=== PATIENT | female | born 1965 | race Caucasian/White ===

== ENCOUNTER 2018-05-04 08:55 | Day surgery (SDC) | payer OTHER ==
[2018-05-03 14:58] LABS: BASOPHILS % (AUTO) 0.3 % (0.0-5.0); EOSINOPHILS % (AUTO) 0.2 % (0.0-8.0); LYMPHOCYTES % (AUTO) 24.2 % (21.0-51.0); MEAN CORPUSCULAR HEMOGLOBIN 27.9 pg (27.0-33.0); MEAN CORPUSCULAR HGB CONC 33.3 g/dL (32.0-36.0); MEAN CORPUSCULAR VOLUME 83.9 fL (79-99); MONOCYTES % (AUTO) 6.3 % (3.0-13.0); NUCLEATED RED BLOOD CELLS 0.1 % (0.0-0.19); PLATELET COUNT (AUTO) 199 K/uL (130-400); RED BLOOD CELL COUNT(AUTO) 4.76 MIL/uL (4.00-5.50); RED CELL DISTRIBUTION WIDTH 13.1 % (11.0-15.5); WHITE BLOOD COUNT (AUTO) 6.6 K/uL (4.8-10.8)
[2018-05-03 14:59] VITALS: BP 115/69
[2018-05-03 15:12] LABS: CREATININE 0.8 mg/dL (0.5-1.5); POTASSIUM 3.5 mmol/L (3.5-5.1)
[~2018-05-04] VITALS: Ht 167.6 cm; Wt 98.7 kg
[2018-05-04] VITALS (14 sets, daily range): BP systolic 118–150; BP diastolic 58–80
[~2018-05-04 08:55] MED LIST: ACET-66 PO; CALC-810 PO; HYDR25TA PO; IBUP-2077 PO; LEVO100T12 PO; LISI1TAB11 PO; MULT-1203 PO
[2018-05-04] MEDS ORDERED: LACTATED RINGERS 1000ML 1,000 ML IV ONE (09:47)
[2018-05-04] MEDS ORDERED: CEFAZOLIN SODIUM 1 GM VIAL ONE (09:47)
[2018-05-04] MEDS: CEFAZOLIN SODIUM 1 GM VIAL IVP ONE ×2 (09:58→13:04)
--- NOTE | 2018-05-04 10:10 | NUR ---
PREOP RIGHT SHOULDER WIPED WITH ANUJA BY DAYRON. , NO CLIPPING NEEDED. SCD PLACE TO BLE.
[2018-05-04] MEDS ORDERED: SCOPOLAMINE HYDROBROMIDE 1 EACH ADH..PATCH TD ONE (11:10)
[2018-05-04] MEDS ORDERED: EPINEPHRINE 1 MG/ML 30ML VIAL IJ ONE (11:14)
[2018-05-04] MEDS ORDERED: LIDOCAINE PF 2% 5ML ABBOJECT ONE (11:15)
[2018-05-04] MEDS ORDERED: PROPOFOL 10 MG/ML 20ML VIAL IV ONE (11:16)
[2018-05-04] MEDS ORDERED: FENTANYL CITRATE PF 50 MCG/1 ML 2ML VIAL ONE (11:17)
[2018-05-04] MEDS ORDERED: ROPIVACAINE 0.5% 5MG/ML 30ML IJ ONE (11:22)
[2018-05-04] MEDS ORDERED: SUCCINYLCHOLINE 200MG/10ML SYR ONE (11:23)
[2018-05-04] MEDS ORDERED: ROCURONIUM 10MG/1ML SYR 10 MG/ML ML ONE (11:23)
[2018-05-04] MEDS ORDERED: DEXAMETHASONE SOD PHOSPHATE 10MG/ML 1ML VIAL ONE (11:29)
[2018-05-04] MEDS ORDERED: PHENYLEPHRINE HCL 10 MG/ML 1ML VIAL IV ONE (12:59)
[2018-05-04] MEDS ORDERED: SODIUM CHLORIDE 0.9% 10 ML VIAL ONE (12:59)
[2018-05-04] MEDS ORDERED: EPHEDRINE SULFATE 50 MG/ML AMPULE ONE (13:17)
[2018-05-04] MEDS ORDERED: NEOSTIGMINE 5MG/5ML SYR IV ONE (14:39)
[2018-05-04] MEDS ORDERED: GLYCOPYRROLATE 1 MG/5 ML SYRINGE ONE (14:39)
[2018-05-04] MEDS ORDERED: ONDANSETRON HCL 4 MG/2 ML VIAL ONE (14:44)
[2018-05-04] MEDS ORDERED: KETOROLAC TROMETHAMINE 30MG/ML ONE (14:53)
[2018-05-04] MEDS ORDERED: TRAM50TA4 PO (14:54)
[2018-05-04] MEDS ORDERED: IBUP-2077 PO (14:54)
[2018-05-04] MEDS ORDERED: DiphenhydrAMINE HCL 50 MG/ML VIAL ONE (14:59)
[2018-05-04] MEDS ORDERED: PROMETHAZINE HCL 25 MG/ML 1ML AMPULE IM ONE ×2 (15:02→15:32)
--- NOTE | 2018-05-04 16:09 | NUR ---
PATIENT RETURNED FROM PACU WITH NAUSEA, NO VOMIT. RIGHT SHOULDER IS SWOLLEN, ICE PACK TO RIGHT SHOULDER. SLING ON TO RIGHT ARM.
--- NOTE | 2018-05-04 17:00 | NUR ---
PATIENT LEFT IN NO DISTRESS, DRESSING TO RIGHT SHOULDER IS CLEAN AND DRY. NO NAUSEA, NO VOMITING UPON DISCHARGE PATIENT STATES FEELING WELL.
== END 2018-05-04 17:08 | disposition home or self-care (01) ==
LOC: DAH 08:55
PROVIDERS: ATTEND Orthopaedic Surgery
DX: M75.101 Unspecified rotator cuff tear or rupture of right shoulder, not specified as traumatic (principal); M75.41 Impingement syndrome of right shoulder; Z68.35 Body mass index [BMI] 35.0-35.9, adult; Z79.899 Other long term (current) drug therapy; Z98.890 Other specified postprocedural states; E03.9 Hypothyroidism, unspecified; E78.5 Hyperlipidemia, unspecified; K21.9 Gastro-esophageal reflux disease without esophagitis; I10 Essential (primary) hypertension; M54.5 Low back pain; G43.109 Migraine with aura, not intractable, without status migrainosus; E55.9 Vitamin D deficiency, unspecified; Z90.710 Acquired absence of both cervix and uterus; Z83.3 Family history of diabetes mellitus; Z82.49 Family history of ischemic heart disease and other diseases of the circulatory system; Z88.8 Allergy status to other drugs, medicaments and biological substances; M19.90 Unspecified osteoarthritis, unspecified site
CPT/HCPCS: 29824; 29826; 29827; 36415; 80048; 85025; A4218; A4450; A4565; A4600; A4649 ×4; A4930 ×2; A6204; C1763; J0171; J0330; J0690; J1100; J1200; J2001; J2370; J2405; J2550 ×2; J2704; J2710; J2795; J3010; J3490 ×2; J7120 ×2; J1885

== ENCOUNTER 2019-12-15 11:04 | Emergency (ER) | payer OTHER ==
[~2019-12-15 11:04] MED LIST changes: -CALC-810 PO; -LISI1TAB11 PO; +LISI1TAB51 PO; +TRAM50TA4 PO; +[UNRECOGNIZED DRUG - CODE] PO
[2019-12-15] MEDS ORDERED: ONDANSETRON HCL 4 MG/2 ML VIAL ONE (11:46)
[2019-12-15 11:47] LABS: BASOPHILS % (AUTO) 0.2 % (0.0-5.0); EOSINOPHILS % (AUTO) 2.9 % (0.0-8.0); HEMATOCRIT 43.7 % (36-48); LYMPHOCYTES % (AUTO) 9.3 % (21.0-51.0); MEAN CORPUSCULAR HEMOGLOBIN 28.8 pg (27.0-33.0); MEAN CORPUSCULAR HGB CONC 33.9 g/dL (32.0-36.0); MEAN CORPUSCULAR VOLUME 85.2 fL (79-99); MONOCYTES % (AUTO) 7.3 % (3.0-13.0); NEUTROPHILS % (AUTO) 80.1 % (40.0-77.0); PLATELET COUNT (AUTO) 157 K/uL (130-400); RED BLOOD CELL COUNT(AUTO) 5.13 MIL/uL (4.00-5.50); RED CELL DISTRIBUTION WIDTH 12.9 % (11.0-15.5); WHITE BLOOD COUNT (AUTO) 5.8 K/uL (4.8-10.8)
[2019-12-15] MEDS ORDERED: SODIUM CHLORIDE 0.9% 1000ML 1,000 ML IV ONE ×2 (11:47→14:15)
[2019-12-15 12:05] LABS: ALBUMIN 3.7 g/dL (3.5-5.0); BILIRUBIN,TOTAL 0.6 mg/dL (0.2-1.0); TOTAL PROTEIN, SERUM 8.5 g/dL (6.0-8.3)
[2019-12-15 12:29] LABS: POTASSIUM 2.9 mmol/L (3.5-5.1)
[2019-12-15] MEDS ORDERED: POTASSIUM BICARB/CIT AC 25 MEQ TABLET.EFF ONE (12:54)
[2019-12-15 13:26] LABS: APPEARANCE,URINE Clear (CLEAR); BILIRUBIN,URINE Negative (NEGATIVE); COLOR,URINE Dark Yellow (YELLOW); GLUCOSE, URINE (UA) Negative (NEGATIVE); KETONES,URINE 40 mg/dL (NEGATIVE); LEUKOCYTE ESTERASE ,URINE Negative (NEGATIVE); NITRATE,URINE Negative (NEGATIVE); OCCULT BLOOD,URINE Trace (NEGATIVE); PROTEIN,URINE POS 2+ mg/dL (NEGATIVE)
[2019-12-15 13:33] LABS: BACTERIA,URINE Rare /HPF (None Seen); MUCUS,URINE Many LPF (None Seen); RBC,URINE 0-1 /HPF (0-1); SQUAMOUS EPITHELIAL CELL,UR Rare /HPF (0-2); WBC,URINE 0-1 /HPF (0-1)
== END 2019-12-15 15:44 | disposition home or self-care (01) ==
LOC: EDH 11:04
DX: A08.39 Other viral enteritis (principal); E86.0 Dehydration; E87.6 Hypokalemia; I10 Essential (primary) hypertension; E03.9 Hypothyroidism, unspecified; Z90.49 Acquired absence of other specified parts of digestive tract; Z90.710 Acquired absence of both cervix and uterus; Z91.048 Other nonmedicinal substance allergy status; Z88.6 Allergy status to analgesic agent; Z88.7 Allergy status to serum and vaccine
CPT/HCPCS: 36415; 80053; 81001; 82550; 83690; 83735; 84484; 85025; 93005; 96361; 96374; 99284; J2405; J7030 ×2

== ENCOUNTER 2020-02-12 09:07 | Day surgery (SDC) | payer OTHER ==
[2020-02-05 11:25] LABS: BASOPHILS % (AUTO) 0.5 % (0.0-5.0); HEMATOCRIT 41.1 % (36-48); LYMPHOCYTES % (AUTO) 29.3 % (21.0-51.0); MEAN CORPUSCULAR HEMOGLOBIN 28.2 pg (27.0-33.0); MEAN CORPUSCULAR HGB CONC 32.4 g/dL (32.0-36.0); MEAN CORPUSCULAR VOLUME 87.3 fL (79-99); MONOCYTES % (AUTO) 5.8 % (3.0-13.0); NEUTROPHILS % (AUTO) 63.1 % (40.0-77.0); PLATELET COUNT (AUTO) 177 K/uL (130-400); RED BLOOD CELL COUNT(AUTO) 4.71 MIL/uL (4.00-5.50); RED CELL DISTRIBUTION WIDTH 12.8 % (11.0-15.5)
[2020-02-05 11:32] LABS: CREATININE 0.7 mg/dL (0.5-1.5); POTASSIUM 3.9 mmol/L (3.5-5.1)
[2020-02-11 13:01] VITALS: BP 121/81
[~2020-02-12] VITALS: Ht 175.3 cm; Wt 84.4 kg
[2020-02-12] VITALS (16 sets, daily range): BP systolic 116–153; BP diastolic 68–103
[~2020-02-12 09:07] MED LIST changes: +ACET-3194 PO; -ACET-66 PO; +CYAN-52 PO; +HYDR12.54 PO; -HYDR25TA PO; +LIDOP TP; -MULT-1203 PO; +POTA20TA82 PO; -TRAM50TA4 PO; +VITAMIN D PO; -[UNRECOGNIZED DRUG - CODE] PO
[2020-02-12] MEDS ORDERED: LACTATED RINGERS 1000ML 1,000 ML IV ONE (11:23)
[2020-02-12] MEDS: CEFAZOLIN SODIUM 1 GM VIAL IVP SCH ×2 (11:30→16:30)
[2020-02-12] MEDS ORDERED: ONDANSETRON HCL 4 MG/2 ML VIAL ONE (14:58)
[2020-02-12] MEDS ORDERED: SUCCINYLCHOLINE CHLORIDE 20 MG/ML 10 ML VIAL ONE (14:58)
[2020-02-12] MEDS ORDERED: DEXAMETHASONE SOD PHOSPHATE 10MG/ML 1ML VIAL ONE (14:58)
[2020-02-12] MEDS ORDERED: LIDOCAINE PF 2% 5ML ABBOJECT ONE (14:58)
[2020-02-12] MEDS ORDERED: ROCURONIUM 10MG/1ML SYR 10 MG/ML ML ONE (14:59)
[2020-02-12] MEDS ORDERED: GLYCOPYRROLATE 1 MG/5 ML SYRINGE ONE (14:59)
[2020-02-12] MEDS ORDERED: PROPOFOL 10 MG/ML 20ML VIAL IV ONE (14:59)
[2020-02-12] MEDS ORDERED: NEOSTIGMINE 5MG/5ML SYR IV ONE (14:59)
[2020-02-12] MEDS ORDERED: MIDAZOLAM HCL 1 MG/ML 2ML VIAL ONE (14:59)
[2020-02-12] MEDS ORDERED: FENTANYL CITRATE PF 50 MCG/1 ML 2ML VIAL ONE ×2 (15:00→17:47)
[2020-02-12] MEDS ORDERED: ROPIVACAINE 0.5% 5MG/ML 30ML IJ ONE ×2 (15:01→16:24)
[2020-02-12] MEDS ORDERED: SCOPOLAMINE HYDROBROMIDE 1 EACH ADH..PATCH TD ONE (16:00)
[2020-02-12] MEDS ORDERED: EPINEPHRINE 1 MG/ML 30ML VIAL IJ ONE (16:10)
[2020-02-12] MEDS ORDERED: CEPH500B PO (18:35)
--- NOTE | 2020-02-12 19:45 | NUR ---
DRESSING TO LEFT UPPER SHOULDER DRY/INTACT. SLING IN PLACE, DENIES ANY PAIN AT THIS TIME.
--- NOTE | 2020-02-12 20:30 | NUR ---
PATIENT DISCHARGED FROM FACILITY VIA WHEELCHAIR BY NURSE AND ASSISTED INTO PRIVATE VEHICLE DRIVEN BY FAMILY
== END 2020-02-12 20:30 | disposition home or self-care (01) ==
LOC: DAH 09:07
PROVIDERS: ATTEND Orthopaedic Surgery
DX: M75.112 Incomplete rotator cuff tear or rupture of left shoulder, not specified as traumatic (principal); Z20.828 Contact with and (suspected) exposure to other viral communicable diseases; M19.012 Primary osteoarthritis, left shoulder; I10 Essential (primary) hypertension; K21.9 Gastro-esophageal reflux disease without esophagitis; E66.9 Obesity, unspecified; Z88.8 Allergy status to other drugs, medicaments and biological substances; Z98.890 Other specified postprocedural states; Z79.899 Other long term (current) drug therapy
CPT/HCPCS: 29824; 29827; 29826; 36415; 64415; 76942; 80048; 85025; A4215; A4221; A4222; A4223; A4600; A4649 ×6; A4657; A4663; A4930; A6204; A6223; C1713 ×2; C9803; G0168; J0171; J0330; J0690; J1100; J2001; J2250; J2405; J2704; J2710; J2795 ×2; J3010 ×2; J3490; J7120 ×2; U0003

== ENCOUNTER 2022-11-28 06:25 | Day surgery (SDC) | payer OTHER ==
[2022-11-25 09:18] VITALS: BP 124/77; PULSE 66; RESP 16
[2022-11-25 09:35] LABS: BASOPHILS # (AUTO) 0.02 K/uL (0.00-0.20); BASOPHILS % (AUTO) 0.4 % (0.0-5.0); EOSINOPHILS # (AUTO) 0.02 K/uL (0.00-0.70); EOSINOPHILS % (AUTO) 0.4 % (0.0-8.0); HEMATOCRIT 41.6 % (36-48); IMMATURE GRANULOCYTE ABSOLUTE 0.01 K/uL (0-1); LYMPHOCYTES # (AUTO) 1.3 K/uL (1.0-4.8); LYMPHOCYTES % (AUTO) 25.3 % (21.0-51.0); MEAN CORPUSCULAR HEMOGLOBIN 27.5 pg (27.0-33.0); MEAN CORPUSCULAR HGB CONC 31.7 g/dL (32.0-36.0); MEAN CORPUSCULAR VOLUME 86.7 fL (79-99); MONOCYTES # (AUTO) 0.4 K/uL (0.1-1.0); NEUTROPHILS # (AUTO) 3.4 K/uL (1.8-7.7); NEUTROPHILS % (AUTO) 66.7 % (40.0-77.0); PLATELET COUNT (AUTO) 197 K/uL (130-400); RED CELL DISTRIBUTION WIDTH 13.2 % (11.0-15.5); WHITE BLOOD COUNT (AUTO) 5.1 K/uL (4.8-10.8)
[2022-11-25 09:58] LABS: CREATININE 0.7 mg/dL (0.5-1.5); POTASSIUM 3.9 mmol/L (3.5-5.1)
[~2022-11-28] VITALS: Ht 167.6 cm; Wt 97.0 kg
[2022-11-28] VITALS (19 sets, daily range): BP systolic 13–137; BP diastolic 50–80; PULSE 58–75; RESP 14–18
[~2022-11-28 06:25] MED LIST changes: -ACET-3194 PO; +AMLO2.5T4 PO; +CARB15DR OP; +CHOL2000 PO; -CYAN-52 PO; +EZET10TA13 PO; -HYDR12.54 PO; -IBUP-2077 PO; -LIDOP TP; -LISI1TAB51 PO; +LISI1TAB53 PO; +POTA-202 PO; -POTA20TA82 PO; -VITAMIN D PO; +Vitamin B12 PO
[2022-11-28] MEDS ORDERED: LACTATED RINGERS 1000ML 1,000 ML IV ONE (06:40)
[2022-11-28] MEDS ORDERED: CEFAZOLIN SODIUM 2 GM VIAL ONE (06:40)
[2022-11-28] MEDS ORDERED: INDOCYANINE GREEN 25 MG VIAL IJ ONE (07:25)
[2022-11-28] MEDS ORDERED: LIDOCAINE 2%-EPI 1:200,000 20 ML VIAL IJ ONE (07:34)
[2022-11-28] MEDS ORDERED: BUPIVACAINE/PF 0.5% 30ML VIAL ONE (07:34)
[2022-11-28] MEDS ORDERED: BUPIVACAINE/PF 0.5% 30ML VIAL INJ ONE (07:44)
[2022-11-28] MEDS ORDERED: SUCCINYLCHOLINE 200MG/10ML SYR ONE (08:15)
[2022-11-28] MEDS ORDERED: METOCLOPRAMIDE 10 MG/2 ML VIAL ONE (08:15)
[2022-11-28] MEDS ORDERED: PROPOFOL 10 MG/ML 20ML VIAL IV ONE (08:16)
[2022-11-28] MEDS ORDERED: FENTANYL CITRATE PF 50 MCG/1 ML 2ML VIAL ONE (08:16)
[2022-11-28] MEDS ORDERED: MIDAZOLAM HCL 1 MG/ML 2ML VIAL ONE (08:16)
[2022-11-28] MEDS ORDERED: ROCURONIUM 10MG/1ML SYR 10 MG/ML ML ONE (08:16)
[2022-11-28] MEDS ORDERED: ONDANSETRON 4MG INJ ONE (08:16)
[2022-11-28] MEDS ORDERED: SCOPOLAMINE HYDROBROMIDE 1 EACH ADH..PATCH TD ONE (08:17)
[2022-11-28] MEDS ORDERED: BUPIVACAINE/PF 0.25% 30ML VIAL IJ ONE ×2 (08:33→08:37)
[2022-11-28] MEDS ORDERED: EPHEDRINE SULFATE 50 MG/ML AMPULE ONE (08:42)
[2022-11-28] MEDS ORDERED: GLYCOPYRROLATE 1 MG/5 ML SYRINGE ONE (09:31)
[2022-11-28] MEDS ORDERED: NEOSTIGMINE 5MG/5ML SYR IV ONE (09:31)
[2022-11-28] MEDS ORDERED: MEPERIDINE-PF 25 MG/ML SYG ONE ×2 (09:36→10:22)
== END 2022-11-28 11:40 | disposition home or self-care (01) ==
LOC: DAH 06:25
PROVIDERS: ATTEND Surgery
DX: K80.10 Calculus of gallbladder with chronic cholecystitis without obstruction (principal); Z20.822 Contact with and (suspected) exposure to COVID-19; K82.8 Other specified diseases of gallbladder; I10 Essential (primary) hypertension; E03.9 Hypothyroidism, unspecified; Z88.8 Allergy status to other drugs, medicaments and biological substances; Z88.6 Allergy status to analgesic agent; Z91.040 Latex allergy status; Z90.49 Acquired absence of other specified parts of digestive tract; Z98.890 Other specified postprocedural states; Z90.710 Acquired absence of both cervix and uterus; Z82.49 Family history of ischemic heart disease and other diseases of the circulatory system; Z83.3 Family history of diabetes mellitus; Z79.899 Other long term (current) drug therapy
CPT/HCPCS: 47562; S2900; 36415; 80048; 85025; 88304; J0330; J2175; J2250; J2405; J2704; J2710; J2765; J3010; J3490; J7030; J7120; A4215; A4221; A4222; A4223; A4600; A4649; A4663; A6260; C1769; G0168; J0690

== ENCOUNTER 2024-01-16 05:36 | Observation (INO) | payer OTHER ==
[2024-01-10 09:35] VITALS: BP 134/74; PULSE 77; RESP 18; TEMP 98
[2024-01-10 09:45] LABS: BASOPHILS # (AUTO) 0.01 K/uL (0.00-0.20); BASOPHILS % (AUTO) 0.2 % (0.0-5.0); EOSINOPHILS # (AUTO) 0.01 K/uL (0.00-0.70); EOSINOPHILS % (AUTO) 0.2 % (0.0-8.0); HEMATOCRIT 42.5 % (36-48); IMMATURE GRANULOCYTE ABSOLUTE 0.01 K/uL (0-1); LYMPHOCYTES # (AUTO) 1.2 K/uL (1.0-4.8); LYMPHOCYTES % (AUTO) 27.7 % (21.0-51.0); MEAN CORPUSCULAR HEMOGLOBIN 27.4 pg (27.0-33.0); MEAN CORPUSCULAR HGB CONC 32.2 g/dL (32.0-36.0); MONOCYTES # (AUTO) 0.3 K/uL (0.1-1.0); MONOCYTES % (AUTO) 6.8 % (3.0-13.0); NEUTROPHILS # (AUTO) 2.9 K/uL (1.8-7.7); NEUTROPHILS % (AUTO) 64.9 % (40.0-77.0); PLATELET COUNT (AUTO) 214 K/uL (130-400); RED CELL DISTRIBUTION WIDTH 13.5 % (11.0-15.5); WHITE BLOOD COUNT (AUTO) 4.4 K/uL (4.8-10.8)
[2024-01-10 09:48] LABS: CREATININE 0.8 mg/dL (0.5-1.0); POTASSIUM 3.6 mmol/L (3.5-5.1)
[2024-01-10 09:54] LABS: INR 0.98 (0.85-1.15); PROTHROMBIN TIME 10.6 SEC (9.6-11.6)
[2024-01-10 09:55] LABS: PARTIAL THROMBOPLASTIN TIME 24.2 SEC (26.3-35.5)
[2024-01-10 10:04] LABS: APPEARANCE,URINE CLEAR (CLEAR); BILIRUBIN,URINE NEGATIVE (NEGATIVE); COLOR,URINE YELLOW (YELLOW); GLUCOSE, URINE (UA) NEGATIVE (NEGATIVE); KETONES,URINE NEGATIVE (NEGATIVE); LEUKOCYTE ESTERASE ,URINE NEGATIVE Leu/uL (NEGATIVE); NITRATE,URINE NEGATIVE (NEGATIVE); OCCULT BLOOD,URINE NEGATIVE (NEGATIVE); PH,URINE 6.5 (5.0-8.0); PROTEIN,URINE NEGATIVE (NEGATIVE); UROBILINOGEN,URINE 0.2 mg/dL (0.2-1.0)
[2024-01-10 10:07] LABS: ADD UA MICROSCOPIC NO
[2024-01-11] MEDS: 0.9%NACL 1000ML 1,000 ML IV ONE (10:33)
[~2024-01-16] VITALS: Ht 168.9 cm; Wt 103.4 kg
[2024-01-16] VITALS (26 sets, daily range): BP systolic 111–155; BP diastolic 6–102; PULSE 71–91; RESP 12–21; TEMP 98–98.6; O2SAT 96–97
[~2024-01-16 05:36] MED LIST changes: -CARB15DR OP; -EZET10TA13 PO; +EZET10TA48 PO; +NAPR-1023 PO; +VITA-427 PO; -Vitamin B12 PO
[2024-01-16] MEDS: ceFAZolin SODIUM 2 GM VIAL ONE (06:22)
[2024-01-16] MEDS: LACTATED RINGERS 1000ML 1,000 ML IV ONE (06:22)
[2024-01-16] MEDS: SCOPOLAMINE HYDROBROMIDE 1 EACH ADH..PATCH TD ONE ×2 (07:09→07:30)
[2024-01-16] MEDS ORDERED: morPHINE PF 100MG/10ML AMP IV ONE (07:11)
[2024-01-16] MEDS ORDERED: MIDAZOLAM HCL 1 MG/ML 2ML VIAL ONE (07:23)
[2024-01-16] MEDS ORDERED: dexaMETHasone SOD PHOSPHATE 4 MG/ML 1ML VIAL ONE ×2 (07:23→07:28)
[2024-01-16] MEDS ORDERED: FENTanyl CITRate PF 50 MCG/1 ML 2ML VIAL ONE (07:24)
[2024-01-16] MEDS ORDERED: rocuRONium bROMide 10MG/1ML 5ML VL ONE (07:24)
[2024-01-16] MEDS ORDERED: proPOFol 10 MG/ML 20ML VIAL IV ONE (07:24)
[2024-01-16] MEDS ORDERED: ondanSETRON 4MG INJ ONE (07:24)
[2024-01-16] MEDS ORDERED: NEOSTIGMINE METHYLSULFATE 1MG/ML IV ONE (07:25)
[2024-01-16] MEDS ORDERED: LIDOCAINE PF 100MG/5ML (2%) SYRINGE 5ML ONE (07:25)
[2024-01-16] MEDS ORDERED: ROPivacaine 0.5% 5MG/ML 30ML ONE (07:33)
[2024-01-16] MEDS: VANCOMYCIN 500MG+NS 100ML 100 ML IV ONE (08:00)
[2024-01-16] MEDS: ceFAZolin SODIUM 2 GM VIAL IVPB SCH (08:00)
[2024-01-16] MEDS: TRANEXAMIC ACID 1000MG/10ML ONE (08:30)
[2024-01-16] MEDS: ceFAZolin SODIUM 1 GM VIAL ONE (08:40)
[2024-01-16] MEDS: VANCOMYCIN 500MG+NS 100ML IVPB IV ONE (09:00)
[2024-01-16] MEDS: TRANEXAMIC ACID 1000MG/10ML IV ONE ×2 (10:16)
[2024-01-16] MEDS ORDERED: CALCIUM CARB 500MG PO PRN (11:00)
[2024-01-16] MEDS: 0.9%NACL 1000ML 1,000 ML IV SCH (11:00)
[2024-01-16] MEDS ORDERED: FERROUS FUMARATE 324 MG TABLET PO PRN (11:00)
[2024-01-16] MEDS ORDERED: DiphenhydrAMINE HCL 50 MG/ML VIAL IVP PRN (11:00)
[2024-01-16] MEDS ORDERED: TEMAZepam 15 MG CAPSULE PO PRN (11:00)
[2024-01-16] MEDS ORDERED: PoTASSium chl 10% ELIXIR 20MEQ 20 MEQ/15 ML UDCUP PO PRN (11:00)
[2024-01-16] MEDS ORDERED: ondanSETRON 4MG INJ IVP PRN (11:00)
[2024-01-16] MEDS: acetaMINOPHEN 1,000 MG/100 ML VIAL IV ONE (11:59)
[2024-01-16] MEDS: ceFAZolin SODIUM 1 GM VIAL IVP SCH (18:23)
[2024-01-16] MEDS: FAMOTIDINE 20MG TAB PO SCH (19:56)
[2024-01-16] MEDS: ketOROlac 15MG/ML VIAL (15MG/ML) IV SCH (19:56)
[2024-01-16] MEDS: ASPIRIN 81 MG EC TAB PO SCH (19:56)
[2024-01-16] MEDS: acetaMINOPHEN 500 MG TABLET PO SCH (19:56)
[2024-01-16] MEDS: CeleCOXib 200 MG CAP PO SCH (19:57)
[2024-01-17] VITALS: BP 99/47; PULSE 72; RESP 20; TEMP 98.3
[2024-01-17 04:00] VITALS: BP 105/55; PULSE 72; RESP 18; TEMP 98.2
[2024-01-17 05:13] LABS: HEMATOCRIT 33.7 % (36-48); MEAN CORPUSCULAR HEMOGLOBIN 27.7 pg (27.0-33.0); MEAN CORPUSCULAR HGB CONC 32.3 g/dL (32.0-36.0); MEAN CORPUSCULAR VOLUME 85.5 fL (79-99); RED BLOOD CELL COUNT(AUTO) 3.94 MIL/uL (4.00-5.50); RED CELL DISTRIBUTION WIDTH 13.3 % (11.0-15.5); WHITE BLOOD COUNT (AUTO) 4.8 K/uL (4.8-10.8)
[2024-01-17 05:22] LABS: CREATININE 0.7 mg/dL (0.5-1.0)
[2024-01-17] MEDS: levoTHYROxine 100 MCG TABLET PO SCH (05:35)
[2024-01-17] MEDS: PoTASSium chloRIDE 20MEQ ER 20 MEQ ERTAB PO PRN (05:35)
[2024-01-17] MEDS: PoTASSium chloRIDE 20MEQ/100ML 100 ML IV PRN (05:36)
[2024-01-17 07:30] VITALS: BP 113/65; PULSE 62; RESP 20; TEMP 98.6
[2024-01-17] MEDS: polyETHYLene GLYCol 3350 17 GM POWD.PACK PO SCH (08:46)
[2024-01-17] MEDS: PoTASSium chloRIDE 20MEQ ER 20 MEQ ERTAB PO SCH (08:47)
[2024-01-17] MEDS: LISINOPRIL 20 MG TABLET PO SCH (08:47)
[2024-01-17] MEDS: hydroCHLOROthiazide 25 MG TABLET PO SCH (08:48)
[2024-01-17] MEDS: EZETIMIBE 10 MG TAB PO SCH (08:48)
[2024-01-17] MEDS: amLODIPine 2.5 MG TAB PO SCH (08:48)
[2024-01-17] MEDS: **HM**(Cholecalciferol (Vitamin D3) (Vitamin D3) 50 MCG) PO SCH (08:49)
[2024-01-17 09:00] VITALS: O2SAT 99
[2024-01-17 11:30] VITALS: BP 129/74; PULSE 84; RESP 20; TEMP 98.7
[2024-01-17 15:30] VITALS: BP 115/58; PULSE 84; RESP 20; TEMP 98.6
[2024-01-17] MEDS ORDERED: AEC81 PO (17:51)
[2024-01-18] MEDS ORDERED: VITAMIN B COMPLEX 1 CAPSULE PO SCH (09:00)
[2024-01-19] MEDS ORDERED: BisaCODYL 10 MG SUPP.RECT RC PRN (11:00)
== END 2024-01-17 18:40 | disposition home or self-care (01) ==
LOC: DAH 05:36 → DAHIP 05:37 → 4DH 12:25
PROVIDERS: ADMIT Orthopaedic Surgery; ATTEND Orthopaedic Surgery
DX: M17.12 Unilateral primary osteoarthritis, left knee (principal); G89.18 Other acute postprocedural pain; E03.9 Hypothyroidism, unspecified; E78.5 Hyperlipidemia, unspecified; K21.9 Gastro-esophageal reflux disease without esophagitis; I10 Essential (primary) hypertension; Z79.899 Other long term (current) drug therapy
CPT/HCPCS: 80048 ×2; 85025; 85610; 85730; 87086; 81003; 36415 ×2; 87641; 64447; 27447; 96374; 96375; 88311; 88305; 97161; 97116 ×3; 96376 ×2; 85027; 97530 ×2; J7030; G0378 ×28; A4663; J7120 ×2; J3010; J0690 ×4; J3490 ×3; J2003; J2250; J2704; J2405; J2710; J1100 ×2; J2795; J1885 ×2; J3370; A9272; A4649 ×3; A4930 ×3; C1713; C1776; A5120; A4215; A4223; A4222; A4221; J3480; 96365; 96366; J2274

== ENCOUNTER 2024-07-21 19:37 | Emergency (ER) | payer OTHER ==
[~2024-07-21] VITALS: Ht 167.6 cm; Wt 99.3 kg
[~2024-07-21 19:37] MED LIST changes: +AEC81 PO; -NAPR-1023 PO; +NAPR-1194 PO
--- NOTE | 2024-07-21 19:43 | NUR ---
UA CUP PROVIDED
[2024-07-21 20:28] LABS: BASOPHILS # (AUTO) 0.02 K/uL (0.00-0.20); BASOPHILS % (AUTO) 0.3 % (0.0-5.0); EOSINOPHILS # (AUTO) 0.11 K/uL (0.00-0.70); EOSINOPHILS % (AUTO) 1.9 % (0.0-8.0); HEMATOCRIT 40.7 % (36-48); IMMATURE GRANULOCYTE ABSOLUTE 0.01 K/uL (0-1); LYMPHOCYTES # (AUTO) 1.3 K/uL (1.0-4.8); LYMPHOCYTES % (AUTO) 22.1 % (21.0-51.0); MEAN CORPUSCULAR HEMOGLOBIN 27.5 pg (27.0-33.0); MEAN CORPUSCULAR HGB CONC 32.7 g/dL (32.0-36.0); MEAN CORPUSCULAR VOLUME 84.3 fL (79-99); MONOCYTES # (AUTO) 0.4 K/uL (0.1-1.0); MONOCYTES % (AUTO) 6.3 % (3.0-13.0); NEUTROPHILS # (AUTO) 4.1 K/uL (1.8-7.7); NEUTROPHILS % (AUTO) 69.2 % (40.0-77.0); PLATELET COUNT (AUTO) 207 K/uL (130-400); RED BLOOD CELL COUNT(AUTO) 4.83 MIL/uL (4.00-5.50); RED CELL DISTRIBUTION WIDTH 13.2 % (11.0-15.5); WHITE BLOOD COUNT (AUTO) 5.9 K/uL (4.8-10.8)
--- NOTE | 2024-07-21 20:38 | HMCIMG ---
CT ABDOMEN/PELVIS W/O CONTRAST HISTORY: Left lower abdominal pain COMPARISON: None TECHNIQUE: Multiple sequential axial images of the abdomen and pelvis were obtained from the dome of the diaphragm through symphysis pubis. Patient was not given contrast through intravenous route. Oral contrast was not given. FINDINGS: No pleural effusion is seen bilaterally. Minimal right lower lung pulmonary infiltrates are seen. Degenerative changes of the thoracolumbar spine are present. The heart is not enlarged. Coronary arterial calcifications are seen. Liver measured 20 cm. A small hiatal hernia is seen. There is small periumbilical hernia with fat content. There is left adrenal nodule measuring 19 x 17 mm may be related to adrenal adenoma. The liver, spleen, left adrenal gland and pancreas are unremarkable. There is no evidence of hydronephrosis bilaterally. No evidence of renal stone is seen. Fecal material is seen in the colon. There are normal size retroperitoneal and mesenteric lymph nodes. No ascites is seen. Atherosclerotic changes are present. Pelvic sidewalls are symmetric bilaterally. Bladder is poorly distended. IMPRESSION: 1. No ascites is seen. CT was performed with one or more following dose reduction techniques: automated exposure control, adjustment of the mA and kv according to patient's size, or use of a iterative reconstruction technique.
[2024-07-21 20:43] LABS: CREATININE 0.8 mg/dL (0.5-1.0); POTASSIUM 3.7 mmol/L (3.5-5.1)
[2024-07-21 20:47] LABS: ALBUMIN 3.6 g/dL (3.5-5.0); BILIRUBIN,DIRECT 0.1 mg/dL (0.0-0.3); BILIRUBIN,TOTAL 0.2 mg/dL (0.2-1.0); TOTAL PROTEIN, SERUM 7.7 g/dL (6.0-8.3)
--- NOTE | 2024-07-21 21:29 | ERN ---
General Chief Complaint: Back Pain-No Injury Stated Complaint: LOW BACK PAIN Time Seen by MD: 19:43 Time Seen by Midlevel: 19:43 Source: patient History of Present Illness Allergies: Coded Allergies: latex (Unverified Allergy, Intermediate, RASH, 05/03/18) Influenza Virus Vaccines (Unverified Allergy, Unknown, 02/11/20) Tetanus Vaccines and Toxoid (Unverified Allergy, Unknown, 11/25/22) codeine (Unverified Adverse Reaction, Intermediate, NAUSEA , VOMITING, 05/03/18) fentanyl (Unverified Adverse Reaction, Intermediate, NAUSEA/VOMITING, 05/03/18) hydrocodone (Unverified Adverse Reaction, Intermediate, NAUSEA, VOMITING, 05/03/18) Uncoded Allergies: DERMABOND (Adverse Reaction, Intermediate, 05/03/18) Home Meds Active Scripts Aspirin (ASPIRIN 81 MG ECTAB) 81 Mg Ectab, 81 MG PO BID for DVT PROPHYLAXIS, #60 TAB.EC Prov:PAPA AMAYA MD 01/17/24 Reported Medications Naproxen (Naproxen) 500 Mg Tablet, 500 MG PO BID PRN for PAIN, TAB 01/10/24 Vitamin B Complex (Vitamin B Complex) 1 Each Tablet, 1 EACH PO QODAY, TAB 01/10/24 Ezetimibe (Ezetimibe) 10 Mg Tablet, 10 MG PO DAILY, TAB 01/10/24 Cholecalciferol (Vitamin D3) (Vitamin D3) 50 Mcg Capsule, 50 MCG PO DAILY, CAP 11/25/22 Lisinopril/Hydrochlorothiazide (Lisinopril-Hctz 20-25 mg Tab) 1 Each Tablet, 1 EACH PO AM, TAB 01/27/22 Amlodipine Besylate (Amlodipine Besylate) 2.5 Mg Tablet, 2.5 MG PO AM, TAB 01/27/22 Potassium Chloride (Potassium Chloride) 20 Meq Tab.er.prt, 20 MEQ PO DAILY 02/11/20 Levothyroxine Sodium (Levothyroxine Sodium) 100 Mcg Tablet, 100 MCG PO ACBKFST, TAB 05/03/18 Past Medical History Past Medical History: Hypertension, Other Medical History Other: THYROID, ADRENAL ISSUES, CHRONIC BACK PAIN Past Surgical History: Appendectomy, Hysterectomy, Cholecystectomy, Other Surgical History Other: LEFT KNEE, BILATERAL SHOULDERS Results Laboratory and Microbiology Lab and Micro Result Laboratory Tests Test 07/21/24 19:46 07/21/24 20:12 Urine Color YELLOW (YELLOW) Urine Appearance CLEAR (CLEAR) Urine pH 7.0 (5.0-8.0) Urine Specific [place] 1.025 (1.001-1.031) Urine Protein NEGATIVE mg/dL (NEGATIVE) Urine Glucose (UA) NEGATIVE mg/dL (NEGATIVE) Urine Ketones NEGATIVE mg/dL (NEGATIVE) Urine Occult Blood NEGATIVE (NEGATIVE) Urine Nitrate NEGATIVE (NEGATIVE) Urine Bilirubin NEGATIVE mg/dL (NEGATIVE) Urine Urobilinogen 0.2 mg/dL (0.2-1.0) Urine Leukocyte Esterase NEGATIVE Ann/uL Urine RBC 2-5 /HPF (0-1) H Urine WBC 2-5 /HPF (0-1) H Urine Squamous Epithelial Cells RARE /HPF (0-2) Urine Bacteria RARE /HPF (None Seen) White Blood Count 5.9 K/uL (4.8-10.8) Red Blood Count 4.83 MIL/uL (4.00-5.50) Hemoglobin 13.3 g/dL (12.0-16.0) Hematocrit 40.7 % (36-48) Mean Corpuscular Volume 84.3 fL (79-99) Mean Corpuscular Hemoglobin 27.5 pg (27.0-33.0) Mean Corpuscular Hemoglobin Concent 32.7 g/dL (32.0-36.0) Red Cell Distribution Width 13.2 % (11.0-15.5) Platelet Count 207 K/uL (130-400) Mean Platelet Volume 12.1 fL (7.5-10.5) H Immature Granulocyte % (Auto) 0.2 % (0-1) Neutrophils (%) (Auto) 69.2 % (40.0-77.0) Lymphocytes (%) (Auto) 22.1 % (21.0-51.0) Monocytes (%) (Auto) 6.3 % (3.0-13.0) Eosinophils (%) (Auto) 1.9 % (0.0-8.0) Basophils (%) (Auto) 0.3 % (0.0-5.0) Neutrophils # (Auto) 4.1 K/uL (1.8-7.7) Lymphocytes # (Auto) 1.3 K/uL (1.0-4.8) Monocytes # (Auto) 0.4 K/uL (0.1-1.0) Eosinophils # (Auto) 0.11 K/uL (0.00-0.70) Basophils # (Auto) 0.02 K/uL (0.00-0.20) Absolute Immature Granulocyte (auto 0.01 K/uL (0-1) Nucleated Red Blood Cells 0.0 % (0.0-0.19) Sodium Level 143 mmol/L (136-145) Potassium Level 3.7 mmol/L (3.5-5.1) Chloride Level 106 mmol/L (101-111) Carbon Dioxide Level 30 mmol/L (21-32) Blood Urea Nitrogen 17 mg/dL (7-18) Creatinine 0.8 mg/dL (0.5-1.0) Glomerular Filtration Rate Calc 85 mL/min (>90) Random Glucose 102 mg/dL (70-105) Total Calcium 8.4 mg/dL (8.5-10.1) L Total Bilirubin 0.2 mg/dL (0.2-1.0) Direct Bilirubin 0.1 mg/dL (0.0-0.3) Aspartate Amino Transf (AST/SGOT) 16 U/L (10-37) Alanine Aminotransferase (ALT/SGPT) 29 U/L (12-78) Alkaline Phosphatase 105 U/L (50-136) Total Protein 7.7 g/dL (6.0-8.3) Albumin 3.6 g/dL (3.5-5.0) Lipase 46 U/L (16-77) ED Course Orders Procedure Category Date Status Time Cbc With Differential LAB 07/21/24 Complete 20:02 Basic Metabolic Panel LAB 07/21/24 Complete 20:02 Hepatic Function Panel LAB 07/21/24 Complete 20:02 Lipase LAB 07/21/24 Complete 20:02 Ct Abdomen/Pelvis W/O CT 07/21/24 Resulted Contrast 20:02 Urinalysis Profile LAB 07/21/24 Complete 21:28 Vital Signs Date Time Temp Pulse Resp B/P (MAP) Pulse Ox O2 Delivery O2 Flow Rate FiO2 07/21/24 19:53 98.1 92 16 175/90 98 Room Air* 0 21 07/21/24 19:38 97.9 82 16 161/98 98 Room Air DX & DISP Disposition: Discharge Departure Impression: Primary Impression: Chronic low back pain Condition: Stable Additional Instructions: Your blood work today is unremarkable. Your CT scan of the abdomen and pelvis without contrast reveals no acute abnormality. Your urinalysis does not show any evidence of infection. Your symptoms may be related to your chronic back pain. Follow up with your primary care doctor for further evaluation. Referrals: VENANCIO KLINE MD (PCP) I have reviewed the case, and I agree with, Diagnosis and Plan I performed the substantive portion of the visit. I have reviewed and personally made and approve the management plan that is documented in the note by myself or the HEMA. I acknowledge for responsibility for the patient's management plan. MARCELINA TAVAREZ Jul 21, 2024 21:29
[2024-07-21 22:00] LABS: APPEARANCE,URINE CLEAR (CLEAR); BILIRUBIN,URINE NEGATIVE (NEGATIVE); COLOR,URINE YELLOW (YELLOW); GLUCOSE, URINE (UA) NEGATIVE (NEGATIVE); KETONES,URINE NEGATIVE (NEGATIVE); LEUKOCYTE ESTERASE ,URINE NEGATIVE Leu/uL (NEGATIVE); NITRATE,URINE NEGATIVE (NEGATIVE); OCCULT BLOOD,URINE NEGATIVE (NEGATIVE); PROTEIN,URINE NEGATIVE (NEGATIVE); UROBILINOGEN,URINE 0.2 mg/dL (0.2-1.0)
[2024-07-21 22:03] LABS: ADD UA MICROSCOPIC YES
[2024-07-21 22:04] LABS: BACTERIA,URINE RARE /HPF (None Seen); MUCUS,URINE RARE LPF (None Seen); SQUAMOUS EPITHELIAL CELL,UR RARE /HPF (0-2)
[2024-07-21 22:35] VITALS: BP 120/76; PULSE 76; RESP 16; TEMP 98.1; O2SAT 98
== END 2024-07-21 22:44 | disposition home or self-care (01) ==
LOC: EDH 19:37
DX: G89.29 Other chronic pain (principal); M54.50 Low back pain, unspecified; I10 Essential (primary) hypertension; Z79.899 Other long term (current) drug therapy; Z88.5 Allergy status to narcotic agent; Z88.7 Allergy status to serum and vaccine; Z88.8 Allergy status to other drugs, medicaments and biological substances; Z90.49 Acquired absence of other specified parts of digestive tract; Z90.710 Acquired absence of both cervix and uterus; Z91.040 Latex allergy status
CPT/HCPCS: 36415; 74176; 80048; 80076; 81001; 83690; 85025; 99284

== ENCOUNTER → 2024-12-11 | Outpatient (CLI) | payer OTHER ==
[~2024-12-11] MED LIST changes: -EZET10TA48 PO; +EZET10TA80 PO
--- NOTE | 2024-12-13 08:10 | HMCIMG ---
EXAM: Nuclear Medicine Gastric Emptying Scan. INDICATION: Abdominal pain, nausea, and early satiety. REFERENCE EXAMINATION: None. TECHNIQUE: 2.1 mCi of Tc99m sulfur colloid with egg whites, 2 slices of bread/jam, 4 ounces of water. FINDINGS: The transit of radiopharmaceuticals is seen from the stomach into the small bowel. 50% gastric emptying is not achieved during the period of study. IMPRESSION: Scintigraphic findings suggest gastroparesis. /[place]
== END | disposition home or self-care (01) ==
LOC: RAH 10:14
PROVIDERS: ATTEND Internal Medicine Gastroenterology
DX: R14.0 Abdominal distension (gaseous) (principal); R68.81 Early satiety; R11.0 Nausea
CPT/HCPCS: 78264; A9541